=== PATIENT | female | born 1975 | race American Indian/Alaskan Native ===

== ENCOUNTER 2018-02-15 06:02 | Day surgery (SDC) | payer MEDICAID ==
[2018-02-15] MEDS ORDERED: WATER FOR IRRIG STERILE IR ONE ×2 (07:09→09:38)
[2018-02-15] MEDS ORDERED: NACL 0.9% 1000 ML 1,000 ML IV SCH (08:00)
[2018-02-15] MEDS ORDERED: DIPRIVAN 10 MG/ML IV ONE (08:23)
[2018-02-15] MEDS ORDERED: VERSED ONE (08:23)
--- NOTE | 2018-02-15 08:26 | Anesthesia Day of Surgery ---
Anesthesia Day of Surgery - Day of Surgery Patient Examined: Yes Patient H&P Reviewed: Yes Patient is NPO: Yes
--- NOTE | 2018-02-15 08:26 | Anesthesia Consultation ---
Anesthesia Consult and Med Hx Date of service: 02/15/18 - Airway Anesthetic Teeth Evaluation: Good ROM Head & Neck: Adequate Mental/Hyoid Distance: Adequate Mallampati Class: Class I Intubation Access Assessment: Probably Good - Pulmonary Exam CTA: Yes - Cardiac Exam Cardiac Exam: RRR - Pre-Operative Health Status ASA Pre-Surgery Classification: ASA3 - Pulmonary Hx Sleep Apnea: Yes - Cardiovascular System Hx Hypertension: Yes - Endocrine Hx Insulin Dependent Diabetes: Yes - Additional Comments Anesthesia Medical History Comments: h/o rheumatic heart disease
[2018-02-15] MEDS ORDERED: HURRICAINE ONE 20% TOPICAL SPRAY MM ×2 (08:50→09:38)
[2018-02-15 09:21] VITALS: BP 126/67
[2018-02-15] MEDS ORDERED: XYLOCAINE MPF 2% ONE (09:30)
--- NOTE | 2018-02-15 14:21 | Post Anesthesia Evaluation ---
- Post Anesthesia Evaluation Patient Participated: Yes Airway Patent: Yes Stable Respiratory Function: Yes Nausea/Vomiting: No Temp > 96.8F: Yes Pain Manageable: Yes Adequeate Hydration: Yes Anesthesia Complications: No
[2018-02-15] MEDS ORDERED: HURRICAINE ONE 20% TOPICAL SPRAY MM NR (19:00)
== END 2018-02-15 06:03 | disposition home or self-care (01) ==
LOC: GIO 06:02
PROVIDERS: ATTEND Specialist
DX: K21.0 Gastro-esophageal reflux disease with esophagitis (principal); B96.89 Other specified bacterial agents as the cause of diseases classified elsewhere; K44.9 Diaphragmatic hernia without obstruction or gangrene; I10 Essential (primary) hypertension; E11.9 Type 2 diabetes mellitus without complications; G47.30 Sleep apnea, unspecified; J45.909 Unspecified asthma, uncomplicated; Z88.0 Allergy status to penicillin; Z99.89 Dependence on other enabling machines and devices; Z98.890 Other specified postprocedural states
CPT/HCPCS: 43239; 81025; 82962; 88305; J2250; J2704; J7030

== ENCOUNTER 2020-09-05 14:56 | Inpatient (IN) | payer MEDICAID ==
--- NOTE | 2020-09-05 17:03 | Emergency Department Report ---
ED General Adult HPI - General Chief complaint: Altered Mental Status Stated complaint: T.I.A Time Seen by Provider: 09/05/20 16:25 Source: EMS Mode of arrival: Stretcher Limitations: Altered Mental Status - History of Present Illness Initial comments: Patient presents to the emergency department today with a chief complaint of facial numbness and slurred speech. 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 She does states she began to have some left facial tingling and then slurred speech. This occurred around 2 PM. This lasted for about 10 minutes and resolved. Patient states she had a TIA/CVA in 2018 and this is very similar to those episodes. Patient does endorse a history of asthma diabetes and hypertension. Patient also states she has hyperlipidemia. Severity scale (0 -10): 0 - Related Data Home Medications Medication Instructions Recorded Confirmed Last Taken HumuLIN 70-30 Vial 27 units SUB-Q QHS 02/14/18 02/22/18 02/20/18 23:00 27 UNITS HumuLIN 70-30 Vial 45 units SUB-Q QAM 02/14/18 02/22/18 02/20/18 09:00 45 UNITS Losartan 100 mg PO DAILY 02/14/18 02/21/18 02/20/18 Albuterol Mdi (or & Nicu Only) 2 puff IH QID PRN 02/21/18 02/22/18 01/17/18 [Proair] Previous Rx's Medication Instructions Recorded Last Taken Type Simvastatin 40 mg PO QHS #30 tablet 09/05/20 Unknown Rx Allergies Allergy/AdvReac Type Severity Reaction Status Date / Time Penicillins AdvReac Intermediate Hives Verified 02/17/18 15:16 ED Review of Systems ROS: Stated complaint: T.I.A Other details as noted in HPI Comment: All other systems reviewed and negative Constitutional: denies: chills, fever Eyes: denies: eye pain, eye discharge, vision change ENT: denies: ear pain, throat pain Respiratory: denies: cough, shortness of breath, wheezing Cardiovascular: denies: chest pain, palpitations Endocrine: no symptoms reported Gastrointestinal: denies: abdominal pain, nausea, diarrhea Genitourinary: denies: urgency, dysuria, discharge Musculoskeletal: denies: back pain, joint swelling, arthralgia Skin: denies: rash, lesions Neurological: denies: headache, weakness, paresthesias Psychiatric: denies: anxiety, depression Hematological/Lymphatic: denies: easy bleeding, easy bruising ED Past Medical Hx - Past Medical History Previous Medical History?: Yes Hx Hypertension: Yes (X 3 YRS) Hx Diabetes: Yes Hx GERD: Yes Hx Asthma: Yes (INHALER PRN) Hx HIV: No Additional medical history: HIGH CHOLESTEROL - Surgical History Past Surgical History?: Yes Additional Surgical History: d&c x 2 - Social History Smoking Status: Former Smoker - Medications Home Medications: Home Medications Medication Instructions Recorded Confirmed Last Taken Type HumuLIN 70-30 Vial 27 units SUB-Q QHS 02/14/18 02/22/18 02/20/18 23:00 History 27 UNITS HumuLIN 70-30 Vial 45 units SUB-Q QAM 02/14/18 02/22/18 02/20/18 09:00 History 45 UNITS Losartan 100 mg PO DAILY 02/14/18 02/21/18 02/20/18 History Albuterol Mdi (or & Nicu Only) 2 puff IH QID PRN 02/21/18 02/22/18 01/17/18 History [Proair] Simvastatin 40 mg PO QHS #30 tablet 09/05/20 Unknown Rx ED Physical Exam - General Limitations: Altered Mental Status General appearance: alert, in no apparent distress - Head Head exam: Present: atraumatic, normocephalic - Eye Eye exam: Present: normal appearance - ENT ENT exam: Present: mucous membranes moist - Neck Neck exam: Present: normal inspection - Respiratory Respiratory exam: Present: normal lung sounds bilaterally. Absent: respiratory distress - Cardiovascular Cardiovascular Exam: Present: regular rate, normal rhythm. Absent: systolic murmur, diastolic murmur, rubs, gallop - GI/Abdominal GI/Abdominal exam: Present: soft, normal bowel sounds. Absent: distended, tenderness - Extremities Exam Extremities exam: Present: normal inspection - Back Exam Back exam: Present: normal inspection - Neurological Exam Neurological exam: Present: alert, oriented X3, CN II-XII intact. Absent: motor sensory deficit - Psychiatric Psychiatric exam: Present: normal affect, normal mood - Skin Skin exam: Present: warm, dry, intact, normal color. Absent: rash ED Course Vital Signs 09/05/20 09/05/20 09/05/20 15:36 15:45 16:00 Temperature 98.9 F Pulse Rate 70 71 66 Respiratory 15 17 13 Rate Blood Pressure 154/87 155/86 Blood Pressure 134/70 [Right] O2 Sat by Pulse 99 99 99 Oximetry 09/05/20 09/05/20 09/05/20 16:15 16:30 17:01 Temperature Pulse Rate 66 65 66 Respiratory 19 19 18 Rate Blood Pressure 141/68 142/82 155/74 Blood Pressure [Right] O2 Sat by Pulse 99 98 98 Oximetry 09/05/20 09/05/20 17:15 17:47 Temperature Pulse Rate 67 74 Respiratory 15 Rate Blood Pressure 155/74 165/61 Blood Pressure [Right] O2 Sat by Pulse 100 100 Oximetry ED Medical Decision Making - Lab Data Result diagrams: 09/05/20 17:01 09/05/20 17:01 Lab Results 09/05/20 09/05/20 09/05/20 Range/Units 17:01 17:01 17:01 WBC 6.5 (4.5-11.0) K/mm3 RBC 3.70 (3.65-5.03) M/mm3 Hgb 9.5 L (10.1-14.3) gm/dl Hct 30.1 L (30.3-42.9) % MCV 81 (79-97) fl MCH 26 L (28-32) pg MCHC 32 (30-34) % RDW 15.5 H (13.2-15.2) % Plt Count 292 (140-440) K/mm3 Lymph % (Auto) 43.4 H (13.4-35.0) % [place] % (Auto) 6.4 (0.0-7.3) % Eos % (Auto) 5.2 H (0.0-4.3) % Baso % (Auto) 1.9 H (0.0-1.8) % Lymph # (Auto) 2.8 (1.2-5.4) K/mm3 [place] # (Auto) 0.4 (0.0-0.8) K/mm3 Eos # (Auto) 0.3 (0.0-0.4) K/mm3 Baso # (Auto) 0.1 (0.0-0.1) K/mm3 Seg Neutrophils % 43.1 (40.0-70.0) % Seg Neutrophils # 2.8 (1.8-7.7) K/mm3 PT 13.6 (12.2-14.9) Sec. INR 1.02 (0.87-1.13) APTT 27.8 (24.2-36.6) Sec. Thrombin Time 16.0 (15.1-19.6) Sec. Sodium 140 (137-145) mmol/L Potassium 3.8 (3.6-5.0) mmol/L Chloride 111.1 H (98-107) mmol/L Carbon Dioxide 21 L (22-30) mmol/L Anion Gap 12 mmol/L BUN 17 (7-17) mg/dL Creatinine 0.6 (0.6-1.2) mg/dL Estimated GFR > 60 ml/min BUN/Creatinine Ratio 28 % Glucose 86 (65-100) mg/dL POC Glucose (70-105) mg/dL Calcium 8.5 (8.4-10.2) mg/dL Total Bilirubin 0.20 (0.1-1.2) mg/dL AST 12 (5-40) units/L ALT 13 (7-56) units/L Alkaline Phosphatase 98 (35-129) units/L Total Creatine Kinase 131 (30-135) units/L CK-MB (CK-2) 1.0 (0.0-4.0) ng/mL CK-MB (CK-2) Rel Index 0.7 (0-4) Troponin T < 0.010 (0.00-0.029) ng/mL Total Protein 6.9 (6.3-8.2) g/dL Albumin 3.5 L (3.9-5) g/dL Albumin/Globulin Ratio 1.0 % Plasma/Serum Alcohol (0-0.07) % 09/05/20 09/05/20 Range/Units 17:01 18:14 WBC (4.5-11.0) K/mm3 RBC (3.65-5.03) M/mm3 Hgb (10.1-14.3) gm/dl Hct (30.3-42.9) % MCV (79-97) fl MCH (28-32) pg MCHC (30-34) % RDW (13.2-15.2) % Plt Count (140-440) K/mm3 Lymph % (Auto) (13.4-35.0) % [place] % (Auto) (0.0-7.3) % Eos % (Auto) (0.0-4.3) % Baso % (Auto) (0.0-1.8) % Lymph # (Auto) (1.2-5.4) K/mm3 [place] # (Auto) (0.0-0.8) K/mm3 Eos # (Auto) (0.0-0.4) K/mm3 Baso # (Auto) (0.0-0.1) K/mm3 Seg Neutrophils % (40.0-70.0) % Seg Neutrophils # (1.8-7.7) K/mm3 PT (12.2-14.9) Sec. INR (0.87-1.13) APTT (24.2-36.6) Sec. Thrombin Time (15.1-19.6) Sec. Sodium (137-145) mmol/L Potassium (3.6-5.0) mmol/L Chloride (98-107) mmol/L Carbon Dioxide (22-30) mmol/L Anion Gap mmol/L BUN (7-17) mg/dL Creatinine (0.6-1.2) mg/dL Estimated GFR ml/min BUN/Creatinine Ratio % Glucose (65-100) mg/dL POC Glucose 92 (70-105) mg/dL Calcium (8.4-10.2) mg/dL Total Bilirubin (0.1-1.2) mg/dL AST (5-40) units/L ALT (7-56) units/L Alkaline Phosphatase (35-129) units/L Total Creatine Kinase (30-135) units/L CK-MB (CK-2) (0.0-4.0) ng/mL CK-MB (CK-2) Rel Index (0-4) Troponin T (0.00-0.029) ng/mL Total Protein (6.3-8.2) g/dL Albumin (3.9-5) g/dL Albumin/Globulin Ratio % Plasma/Serum Alcohol < 0.01 (0-0.07) % - EKG Data -: EKG Interpreted by Ks EKG shows normal: sinus rhythm Rate: normal - Radiology Data Radiology results: report reviewed - Medical Decision Making Code stroke initiated Patient seen by teleneurology With the patient's history of CVA the suggestion was made for admission for TIA work-up Critical care attestation.: If time is entered above; I have spent that time in minutes in the direct care of this critically ill patient, excluding procedure time. ED Disposition Clinical Impression: TIA (transient ischemic attack) Disposition: DC-09 OP ADMIT IP TO THIS HOSP Is pt being admited?: Yes Does the pt Need Aspirin: Yes Condition: Fair Prescriptions: Simvastatin 40 mg PO QHS #30 tablet Referrals: PRIMARY CARE, [Primary Care Provider] - 3-5 Days - Assessment Assessment Interval: Baseline - Level of Consciousness 1a. Level of Consciousness: alert/keenly responsive - LOC Questions 1b. LOC Questions: answers both correctly - LOC Command 1c. LOC Commands: performs tasks correctly - Best Gaze 2. Best Gaze: normal - Visual 3. Visual: no visual loss - Facial Palsy 4. Facial Palsy: normal symmetrical movement - Motor Arm 5a. Motor Arm Left: no drift 5b. Motor Arm Right: no drift - Motor Leg 6a. Motor Leg Left: no drift 6b. Motor Leg Right: no drift - Limb Ataxia 7. Limb Ataxia: absent - Sensory 8. Sensory: normal - Best Language 9. Best Language: no aphasia - Dysarthria 10. Dysarthria: normal - Extinction and Inattention 11. Extinction/Inattention: no abnormality - Scoring Total Score: 0 Stroke Severity: No Stroke Symptoms
[2020-09-05 17:23] LABS: Basophils # (Auto) 0.1 K/mm3 (0.0-0.1); Basophils % (Auto) 1.9 % (0.0-1.8); Eosinophils # (Auto) 0.3 K/mm3 (0.0-0.4); Eosinophils % (Auto) 5.2 % (0.0-4.3); Hematocrit 30.1 % (30.3-42.9); Hemoglobin 9.5 gm/dl (10.1-14.3); Lymphocytes # (Auto) 2.8 K/mm3 (1.2-5.4); Lymphocytes % (Auto) 43.4 % (13.4-35.0); Mean Corpuscular HGB Conc 32 % (30-34); Mean Corpuscular Volume 81 fl (79-97); Monocytes # (Auto) 0.4 K/mm3 (0.0-0.8); Monocytes % (Auto) 6.4 % (0.0-7.3); Platelet Count 292 K/mm3 (140-440); Red Cell Distribution Width 15.5 % (13.2-15.2)
[2020-09-05 17:33] LABS: INR 1.02 (0.87-1.13)
[2020-09-05 17:34] LABS: Partial Thromboplastin Time 27.8 Sec. (24.2-36.6)
[2020-09-05 17:40] LABS: Alanine Aminotransferase 13 units/L (7-56); Albumin 3.5 g/dL (3.9-5); Blood Urea Nitrogen 17 mg/dL (7-17); Calcium 8.5 mg/dL (8.4-10.2); Hemolysis Index 1
--- NOTE | 2020-09-05 17:45 | Emergency Department Report ---
ED General Adult HPI - General Chief complaint: Altered Mental Status Stated complaint: T.I.A Time Seen by Provider: 09/05/20 16:25 Source: patient, EMS Mode of arrival: Stretcher Limitations: Altered Mental Status - History of Present Illness Severity scale (0 -10): 0 - Related Data Home Medications Medication Instructions Recorded Confirmed Last Taken HumuLIN 70-30 Vial 27 units SUB-Q QHS 02/14/18 02/22/18 02/20/18 23:00 27 UNITS HumuLIN 70-30 Vial 45 units SUB-Q QAM 02/14/18 02/22/18 02/20/18 09:00 45 UNITS Losartan 100 mg PO DAILY 02/14/18 02/21/18 02/20/18 Albuterol Mdi (or & Nicu Only) 2 puff IH QID PRN 02/21/18 02/22/18 01/17/18 [Proair] Pravastatin [Pravachol] 20 mg PO QHS 02/21/18 02/21/18 02/20/18 Allergies Allergy/AdvReac Type Severity Reaction Status Date / Time Penicillins AdvReac Intermediate Hives Verified 02/17/18 15:16 ED Review of Systems ROS: Stated complaint: T.I.A Other details as noted in HPI Constitutional: denies: chills, fever Eyes: denies: eye pain, eye discharge, vision change ENT: denies: ear pain, throat pain Respiratory: denies: cough, shortness of breath, wheezing Cardiovascular: denies: chest pain, palpitations Endocrine: no symptoms reported Gastrointestinal: denies: abdominal pain, nausea, diarrhea Genitourinary: denies: urgency, dysuria, discharge Musculoskeletal: denies: back pain, joint swelling, arthralgia Skin: denies: rash, lesions Neurological: denies: headache, weakness, paresthesias Psychiatric: denies: anxiety, depression Hematological/Lymphatic: denies: easy bleeding, easy bruising ED Past Medical Hx - Past Medical History Previous Medical History?: Yes Hx Hypertension: Yes (X 3 YRS) Hx Diabetes: Yes Hx GERD: Yes Hx Asthma: Yes (INHALER PRN) Hx HIV: No Additional medical history: HIGH CHOLESTEROL - Surgical History Past Surgical History?: Yes Additional Surgical History: d&c x 2 - Social History Smoking Status: Former Smoker - Medications Home Medications: Home Medications Medication Instructions Recorded Confirmed Last Taken Type HumuLIN 70-30 Vial 27 units SUB-Q QHS 02/14/18 02/22/18 02/20/18 23:00 History 27 UNITS HumuLIN 70-30 Vial 45 units SUB-Q QAM 02/14/18 02/22/18 02/20/18 09:00 History 45 UNITS Losartan 100 mg PO DAILY 02/14/18 02/21/18 02/20/18 History Albuterol Mdi (or & Nicu Only) 2 puff IH QID PRN 02/21/18 02/22/18 01/17/18 History [Proair] Pravastatin [Pravachol] 20 mg PO QHS 02/21/18 02/21/18 02/20/18 History ED Physical Exam - General Limitations: Altered Mental Status General appearance: alert, in no apparent distress - Head Head exam: Present: atraumatic ED Course Vital Signs 09/05/20 15:36 Temperature 98.9 F Pulse Rate 70 Respiratory 15 Rate Blood Pressure 134/70 [Right] O2 Sat by Pulse 99 Oximetry - Reevaluation(s) Reevaluation #1: 09/05/20 17:45 [facility] Date of Service: 09/05/2020 16:55:36 Impression: Rule Out Acute Ischemic Stroke Small Vessel Infarct Transient Ischemic Attack Comments/Sign-Out: Patient with history of hypertension, HLD, prior TIA who presents with left sided numbness and paresthesias. This began before 2pm. NIHSS 1. Symptoms are mild and nondisabling. The risks of alteplase outweigh the benefit. Would admit for MRI brain, 2d echo, CUS, control of cardiovascular risk factors. Mechanism of Stroke: Small Vessel Disease Metrics: Last Known Well: 09/05/2020 14:00:00 [facility] Notification Time: 09/05/2020 16:55:25 Arrival Time: 09/05/2020 14:56:00 Stamp Time: 09/05/2020 16:55:36 Time First Login Attempt: 09/05/2020 16:55:00 Video Start Time: 09/05/2020 16:55:00 Symptoms: left facial numbness and slurred speech NIHSS Start Assessment Time: 09/05/2020 17:35:43 Patient is not a candidate for Alteplase/Activase. Patient was not deemed candidate for Alteplase/Activase thrombolytics because of Resolved symptoms (no residual disabling symptoms). CT head showed no acute hemorrhage or acute core infarct. CT head was reviewed. Clinical Presentation is not Suggestive of Large Vessel Occlusive Disease ED Physician notified of diagnostic impression and management plan on 09/05/2020 17:23:19 Our recommendations are outlined below. Recommendations: Activate Stroke Protocol Admission/Order Set Stroke/Telemetry Floor Neuro Checks Bedside Swallow Eval DVT Prophylaxis IV Fluids, Normal Saline Head of Bed 30 Degrees Euglycemia and Avoid Hyperthermia (PRN Acetaminophen) Initiate Aspirin Initiate Plavix on asa and plavix lipitor 80mg check lipid panel and HgA1C Routine Consultation with Inhouse Neurology for Follow up Care Sign Out: Discussed with Emergency Department Provider History of Present Illness: Patient is a 45 year old Female. Patient was brought by EMS for symptoms of left facial numbness and slurred speech Patient is a 45 yr old with PMH of prior TIA, hypertension, hyperlipidemia, diabetes who presents after a 10-15min episode of left facial numbness and slurred speech. It is now resolved. She is back to her baseline. 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 Last seen normal was within 4.5 hours. There is no history of hemorrhagic complications or intracranial hemorrhage. There is no history of Recent Anticoagulants. There is no history of recent major surgery. There is no history of recent stroke. Past Medical History: Hypertension Diabetes Mellitus Hyperlipidemia Stroke There is NO history of Atrial Fibrillation There is NO history of Coronary Artery Disease Anticoagulant use: No Antiplatelet use: aspirin and plavix Examination: BP(134/70), Pulse(70), Blood Glucose(-) 1A: Level of Consciousness - Alert; keenly responsive + 0 1B: Ask Month and Age - Both Questions Right + 0 1C: Blink Eyes & Squeeze Hands - Performs Both Tasks + 0 2: Test Horizontal Extraocular Movements - Normal + 0 3: Test Visual Martinez - No Visual Loss + 0 4: Test Facial Palsy (Use Grimace if Obtunded) - Normal symmetry + 0 5A: Test Left Arm Motor Drift - No Drift for 10 Seconds + 0 5B: Test Right Arm Motor Drift - No Drift for 10 Seconds + 0 6A: Test Left Leg Motor Drift - No Drift for 5 Seconds + 0 6B: Test Right Leg Motor Drift - No Drift for 5 Seconds + 0 7: Test Limb Ataxia (FNF/Heel-Rodriguez) - No Ataxia + 0 8: Test Sensation - Mild-Moderate Loss: Less Sharp/More Dull + 1 9: Test Language/Aphasia - Normal; No aphasia + 0 10: Test Dysarthria - Normal + 0 11: Test Extinction/Inattention - No abnormality + 0 NIHSS Score: 1 Pre-Morbid Modified Ranking Scale: 0 Points = No symptoms at all Patient/Family was informed the Neurology Consult would happen via TeleHealth consult by way of interactive audio and video telecommunications and consented to receiving care in this manner. Due to the immediate potential for life-threatening deterioration due to underlying acute neurologic illness, I spent 45 minutes providing critical care. This time includes time for face to face visit via telemedicine, review of medical records, imaging studies and discussion of findings with providers, the patient and/or family. Dr Michelle Yanes [facility] Case [id number] ED Medical Decision Making - Lab Data Result diagrams: 09/05/20 17:01 09/05/20 17:01 Critical care attestation.: If time is entered above; I have spent that time in minutes in the direct care of this critically ill patient, excluding procedure time. ED Disposition Condition: Stable Referrals: PRIMARY CARE, [Primary Care Provider] - 3-5 Days
--- NOTE | 2020-09-05 17:57 | Cat Scan Report ---
CT HEAD WITHOUT CONTRAST INDICATION / CLINICAL INFORMATION: Stroke symptoms. History obtained from Dr. Christine included facial weakness and aphasia. Symptoms are sa id to have recently resolved. TECHNIQUE: All CT scans at this location are performed using CT dose reduction for ALARA by means of automated e xposure control. COMPARISON: None available. FINDINGS: HEMORRHAGE: No evidence of intracranial hemorrhage or extra-axial fluid collection. EXTRA-AXIAL SPACES: Cortical sulci, sylvian fissures and basilar cisterns have an unremarkable appear ance. VENTRICULAR SYSTEM: The ventricular system is of normal size. Note is made of absence of the septum p ellucidum which can be associated with septo-optic dysplasia. CEREBRAL PARENCHYMA: An area of decreased brain parenchymal attenuation is identified in the right oc cipital lobe secondary to remote right posterior cerebral artery infarction. A small area of decrease d attenuation is observed in the left gangliocapsular region likely reflecting the sequelae of remote small deep infarction. No definite evidence of recent infarction is observed. Note is made of bilate rally symmetrical physiological basal ganglia calcifications. MIDLINE SHIFT OR HERNIATION: There is no mass effect. CEREBELLUM / BRAINSTEM: Brainstem and cerebellum have an unremarkable appearance. MIDLINE STRUCTURES:No abnormalities of the pituitary gland or pineal region are identified. INTRACRANIAL VESSELS: Calcified atherosclerotic plaque is observed along the course of the cavernous segments of both internal carotid arteries. ORBITS: Patient appears to be status post bilateral cataract surgery. The orbits have an otherwise un remarkable appearance. SOFT TISSUES of HEAD: No significant abnormality. CALVARIUM: Evaluation of bone windows reveals no abnormalities. PARANASAL SINUSES / MASTOID AIR CELLS: Paranasal sinuses are free from inflammatory mucosal disease. Mastoid air cells are normally pneumatized. IMPRESSION: 1. No acute intracranial abnormality. 2. Evidence of remote right occipital lobe infarction and remote small deep infarction in a left gang liocapsular distribution. 3. Congenital absence of the septum pellucidum. CODE STROKE: Time of Communication (CLINICAL ACADEMIC ALLERGIST/CDT): 3016 Central standard time Licensed Practitioner Receiving Report: Dr. Christine of the [facility] emergency de partment. Signer Name: Jimbo Becerra MD Signed: 09/05/2020 5:53 PM Workstation Name: [id number]
--- NOTE | 2020-09-05 18:00 | XRay Report ---
CHEST 1 VIEW 09/05/2020 4:55 PM INDICATION / CLINICAL INFORMATION: TIA. COMPARISON: None available. FINDINGS: SUPPORT DEVICES: None. HEART / MEDIASTINUM: No significant abnormality. LUNGS / PLEURA: No significant pulmonary or pleural abnormality. No pneumothorax. ADDITIONAL FINDINGS: No significant additional findings. IMPRESSION: 1. No acute findings. Signer Name: Monroe Ho MD Signed: 09/05/2020 5:56 PM Workstation Name: [id number]
[2020-09-05 18:01] LABS: BUN/Creatinine Ratio 28
[2020-09-05] MEDS ORDERED: PROMETHAZINE 25 MG RECT SUPP PR PRN (19:44)
[2020-09-05] MEDS ORDERED: METOCLOPRAMIDE 10 MG TAB PO PRN (19:44)
[2020-09-05] MEDS ORDERED: ACETAMINOPHEN 325 MG TAB PO PRN (19:44)
[2020-09-05] MEDS ORDERED: ONDANSETRON 4 MG/2 ML INJ IV PRN (19:44)
[2020-09-05] MEDS ORDERED: MAGNESIUM HYDROXIDE (MOM) ORAL LIQD UDC PO PRN (19:44)
--- NOTE | 2020-09-05 19:44 | History and Physical Report ---
History of Present Illness Chief complaint: I felt weak and I could not talk all of a sudden History of present illness: 45 YO Female with Obesity Hypoventilation Syndrome, HTN, DM, HLD, Metabolic Syndrome presents to ED for evaluation. Patient states that she experienced sudden onset facial numbness and slurred speech around 1400 hrs. 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 After the onset of symptoms the patient pulled over a local restaurant. EMS was notified and upon arrival the patient was found to be in distress with a neurologic deficit. A code stroke was called and the patient was transported to [facility] for further care and evaluation of the aforementioned symptoms. Patient seen and evaluated in the emergency department. Lab and imaging studies reviewed. Patient found to have symptoms consistent with CVA. Teleneurology was consulted. The patient was deemed to not be a candidate for TPA therapy. patient initiated on stroke protocol and placed in observation status and admitted to medical floor. Past History Past Medical History: diabetes, hypertension, hyperlipidemia Past Surgical History: Other (D&C) Social history: . denies: smoking, alcohol abuse, prescription drug abuse Family history: diabetes, hypertension Medications and Allergies Allergies Allergy/AdvReac Type Severity Reaction Status Date / Time Penicillins AdvReac Intermediate Hives Verified 02/17/18 15:16 Home Medications Medication Instructions Recorded Confirmed Last Taken Type HumuLIN 70-30 Vial 27 units SUB-Q QHS 02/14/18 02/22/18 02/20/18 23:00 History 27 UNITS HumuLIN 70-30 Vial 45 units SUB-Q QAM 02/14/18 02/22/18 02/20/18 09:00 History 45 UNITS Losartan 100 mg PO DAILY 02/14/18 02/21/18 02/20/18 History Albuterol Mdi (or & Nicu Only) 2 puff IH QID PRN 02/21/18 02/22/18 01/17/18 History [Proair] Simvastatin 40 mg PO QHS #30 tablet 09/05/20 Unknown Rx Review of Systems Constitutional: no weight loss, no weight gain, no fever, no chills Ears, nose, mouth and throat: no ear pain, no ear discharge, no decreased hearing, no nose pain Breasts: no change in shape, no swelling, no mass Cardiovascular: no chest pain, no orthopnea, no palpitations, no rapid/irregular heart beat Respiratory: no cough, no excessive sputum, no hemoptysis, no shortness of breath Gastrointestinal: no abdominal pain, no vomiting, no diarrhea, no constipation Genitourinary Female: no pelvic pain, no flank pain, no menorrhagia, no dysuria, no urinary frequency, no urgency, no post void dribbling Rectal: no pain, no incontinence, no bleeding Musculoskeletal: no neck stiffness, no neck pain, no low back pain Integumentary: no rash, no pruritis, no sores, no wounds, no jaundice, no boils Neurological: paralysis, weakness, numbness, change in speech, no seizures, no syncope Psychiatric: no memory loss, no change in sleep habits, no sleep disturbances, no insomnia, no hypersomnia, no change in appetite Endocrine: no cold intolerance, no polyphagia, no excessive thirst, no polydips ia, no nocturia, no flushing Hematologic/Lymphatic: no easy bruising, no easy bleeding, no lymphadenopathy, no lymphedema Allergic/Immunologic: no urticaria, no allergic rhinitis, no persistent infections, no anaphylaxis, no angioedema Exam - Constitutional Vitals: Temp Pulse Resp BP Pulse Ox 98.9 F 74 15 165/61 100 09/05/20 15:36 09/05/20 17:47 09/05/20 17:15 09/05/20 17:47 09/05/20 17:47 General appearance: Present: no acute distress, well-nourished - EENT Eyes: Present: PERRL ENT: hearing intact, clear oral mucosa - Neck Neck: Present: supple, normal ROM - Respiratory Respiratory effort: normal Respiratory: bilateral: CTA - Cardiovascular Heart Sounds: Present: S1 & S2. Absent: rub, click - Extremities Extremities: pulses symmetrical, No edema Peripheral Pulses: within normal limits - Abdominal General gastrointestinal: Present: soft, non-tender, non-distended, normal bowel sounds Female genitourinary: Present: normal - Integumentary Integumentary: Present: clear, warm, dry - Musculoskeletal Musculoskeletal: gait normal, strength equal bilaterally - Psychiatric Psychiatric: appropriate mood/affect, intact judgment & insight - Neurologic Neurologic: CNII-XII intact, moves all extremities HEART Score - HEART Score Troponin: Troponin T < 0.010 ng/mL (0.00-0.029) 09/05/20 17:01 Results - Labs CBC & Chem 7: 09/05/20 17:01 09/05/20 17:01 Labs: Abnormal lab results 09/05/20 09/05/20 Range/Units 17:01 17:01 Hgb 9.5 L (10.1-14.3) gm/dl Hct 30.1 L (30.3-42.9) % MCH 26 L (28-32) pg RDW 15.5 H (13.2-15.2) % Lymph % (Auto) 43.4 H (13.4-35.0) % Eos % (Auto) 5.2 H (0.0-4.3) % Baso % (Auto) 1.9 H (0.0-1.8) % Chloride 111.1 H (98-107) mmol/L Carbon Dioxide 21 L (22-30) mmol/L Albumin 3.5 L (3.9-5) g/dL Assessment and Plan - Patient Problems (1) CVA (cerebral vascular accident) Current Visit: Yes Status: Acute Qualifiers: Laterality of affected vessel: unspecified Plan to address problem: CVA Protocol: CT head, Neuro check, PT consulted, OT consulted, Speech consulted, anti platelet therapy, Echo, Carotid doppler, antiplatelet therapy (2) HTN (hypertension) Current Visit: Yes Status: Acute Qualifiers: Hypertension type: essential hypertension Qualified Code(s): I10 - Essent ial (primary) hypertension Plan to address problem: Monitor bp q shift, continue medical management. (3) HLD (hyperlipidemia) Current Visit: Yes Status: Acute Qualifiers: Hyperlipidemia type: mixed hyperlipidemia Qualified Code(s): E78.2 - Mixed hyperlipidemia Plan to address problem: statin therapy, low cholesterol diet. (4) Diabetes Current Visit: Yes Status: Acute Plan to address problem: Sliding scale insulin, accu check, consistent carbohydrate diet (5) DVT prophylaxis Current Visit: Yes Status: Acute Plan to address problem: SCD to BLE while in bed.
[2020-09-05] MEDS ORDERED: DEXTROSE 50% IN WATER (25GM) 50 ML SYRINGE IV PRN (19:49)
[2020-09-05] MEDS ORDERED: ASPIRIN 81 MG TAB CHEW PO ONE (19:50)
[2020-09-05] MEDS ORDERED: ASPIRIN 81 MG TAB CHEW ONE (23:47)
[2020-09-06] MEDS: INSULIN LISPRO 100 UNIT/ML VIAL 3 mL SUB-Q SCH ×3 (01:07→23:25)
[2020-09-06 06:53] LABS: Chol/HDL Ratio 2.84 %
--- NOTE | 2020-09-06 11:11 | Vascular Lab Report ---
VL carotid duplex BILAT INDICATION / CLINICAL INFORMATION: stroke. COMPARISON: None available. FINDINGS: Moderate intimal thickening is demonstrated bilaterally, but there is only minimal plaque formation. Velocity measurements and waveform analysis indicate less than 50% stenosis of each internal carotid artery, according to Nascet criteria. Normal antegrade flow is demonstrated in both vertebral arteries. IMPRESSION: 1. No hemodynamically significant stenosis. Signer Name: Moisés Grullon MD Signed: 09/06/2020 11:07 AM Workstation Name: [email or web address]
[2020-09-06] MEDS ORDERED: FLU VACC QUAD 2020-2021 (6 months +)/PF 60 0.5 ML SYRINGE IM ONE (12:00)
[2020-09-06] MEDS: ASPIRIN 325 MG TAB PO SCH (12:21)
[2020-09-06] MEDS: LOSARTAN 50 MG TAB PO SCH (12:22)
--- NOTE | 2020-09-06 14:24 | Progress Note ---
<DOMOZARAPaula - Last Filed: 09/06/20 14:42> Assessment and Plan - Patient Problems (1) CVA (cerebral vascular accident) Current Visit: Yes Status: Acute Qualifiers: Laterality of affected vessel: unspecified Plan to address problem: 09/05 CT head shows evidence of remote right occipital lobe infarction and remote small deep infarctions in the left gangliocapsular distribution small deep infarction. 09/06 echocardiogram pending 09/06 bilateral carotid duplex shows less than 50% stenosis bilateral internal carotid artery. No hemodynamically significant stenosis noted. 09/06 MRI brain pending Neurology consulted Aspirin and statin therapy Permissive hypertension for 24 hours then target normotension PT/OT/ST consult Seizure, aspiration, fall precautions (2) Diabetes Current Visit: Yes Status: Acute Plan to address problem: 09/06 hemoglobin A1c 6 SSI CC cardiac diet Accu-Cheks AC at bedtime (3) HLD (hyperlipidemia) Current Visit: Yes Status: Acute Qualifiers: Hyperlipidemia type: mixed hyperlipidemia Qualified Code(s): E78.2 - Mixed hyperlipidemia Plan to address problem: Initiated on statin therapy (4) HTN (hypertension) Current Visit: Yes Status: Acute Qualifiers: Hypertension type: essential hypertension Qualified Code(s): I10 - Essential (primary) hypertension Plan to address problem: Resume home diet which is a regimen 09/06 added amlodipine Blood pressure monitoring per protocol As needed hydralazine (5) Hyperchloremia Current Visit: Yes Status: Acute Plan to address problem: 09/06 chloride 111.1 Trend BMP S/p IVF (6) DVT prophylaxis Current Visit: Yes Status: Acute Plan to address problem: Lovenox subcu SCDs bilateral extremities while in bed History Interval history: 45-year-old female with HTN, DM, SONG, HLD, CVA and metabolic syndrome who presents to the emergency department on 09/05 after she experienced sudden onset of facial numbness and slurred speech around 1400 hrs via EMS. Patient was found to have symptoms consistent with a CVA and telemetry neurology was consulted who deemed the patient not a candidate for TPA therapy. Patient was admitted to the hospital service for further CVA work-up. This morning patient received an MRI brain, echocardiogram, bilateral carotid ultrasound and PT/OT/ST was consulted. Patient was initiated on a cardiac consistent carbohydrate diet and neurology was consulted. At the time of my exam patient still exhibits a left-sided facial droop with a droop noted in her LUE and LLE and patient reports decreased sensation in her left lower extremity. Hospitalist Physical - Constitutional Vitals: Temp Pulse Resp BP Pulse Ox 98.6 F 82 18 165/76 98 09/06/20 12:22 09/06/20 12:22 09/06/20 12:22 09/06/20 12:22 09/06/20 12:22 General appearance: Present: no acute distress, well-nourished, obese - EENT Eyes: Present: PERRL, EOM intact ENT: hearing intact, clear oral mucosa, dentition normal - Neck Neck: Present: supple, normal ROM - Respiratory Respiratory effort: normal Respiratory: bilateral: CTA - Cardiovascular Rhythm: regular Heart Sounds: Present: S1 & S2. Absent: systolic murmur, diastolic murmur - Extremities Extremities: no ischemia, pulses intact, pulses symmetrical, No edema, normal temperature, normal color, Full ROM Peripheral Pulses: within normal limits - Abdominal General gastrointestinal: soft, non-tender, non-distended, normal bowel sounds - Integumentary Integumentary: Present: clear, warm, dry - Psychiatric Psychiatric: appropriate mood/affect, cooperative - Neurologic Neurologic: CNII-XII intact, focal deficits (Slight LUE and LLE droop with a left-sided facial droop noted, unknown to patient if it was from previous CVA), moves all extremities - Allied Health Allied health notes reviewed: nursing HEART Score - HEART Score Troponin: Troponin T < 0.010 ng/mL (0.00-0.029) 09/05/20 17:01 Results - Labs CBC & Chem 7: 09/05/20 17:01 09/05/20 17:01 Labs: Laboratory Last Values WBC 6.5 K/mm3 (4.5-11.0) 09/05/20 17: RBC 3.70 M/mm3 (3.65-5.03) 09/05/20 17:01 Hgb 9.5 gm/dl (10.1-14.3) L 09/05/20 17: Hct 30.1 % (30.3-42.9) L 09/05/20 17: MCV 81 fl (79-97) 09/05/20 17: MCH 26 pg (28-32) L 09/05/20 17:01 MCHC 32 % (30-34) 09/05/20 17:01 RDW 15.5 % (13.2-15.2) H 09/05/20 17:01 Plt Count 292 K/mm3 (140-440) 09/05/20 17:01 Lymph % (Auto) 43.4 % (13.4-35.0) H 09/05/20 17:01 [place] % (Auto) 6.4 % (0.0-7.3) 09/05/20 17:01 Eos % (Auto) 5.2 % (0.0-4.3) H 09/05/20 17:01 Baso % (Auto) 1.9 % (0.0-1.8) H 09/05/20 17:01 Lymph # (Auto) 2.8 K/mm3 (1.2-5.4) 09/05/20 17:01 [place] # (Auto) 0.4 K/mm3 (0.0-0.8) 09/05/20 17:01 Eos # (Auto) 0.3 K/mm3 (0.0-0.4) 09/05/20 17:01 Baso # (Auto) 0.1 K/mm3 (0.0-0.1) 09/05/20 17:01 Seg Neutrophils % 43.1 % (40.0-70.0) 09/05/20 17:01 Seg Neutrophils # 2.8 K/mm3 (1.8-7.7) 09/05/20 17:01 PT 13.6 Sec. (12.2-14.9) 09/05/20 17:01 INR 1.02 (0.87-1.13) 09/05/20 17:01 APTT 27.8 Sec. (24.2-36.6) 09/05/20 17:01 Thrombin Time 16.0 Sec. (15.1-19.6) 09/05/20 17:01 Sodium 140 mmol/L (137-145) 09/05/20 17:01 Potassium 3.8 mmol/L (3.6-5.0) 09/05/20 17:01 Chloride 111.1 mmol/L (98-107) H 09/05/20 17:01 Carbon Dioxide 21 mmol/L (22-30) L 09/05/20 17:01 Anion Gap 12 mmol/L 09/05/20 17:01 BUN 17 mg/dL (7-17) 09/05/20 17:01 Creatinine 0.6 mg/dL (0.6-1.2) 09/05/20 17:01 Estimated GFR > 60 ml/min 09/05/20 17:01 BUN/Creatinine Ratio 28 % 09/05/20 17:01 Glucose 86 mg/dL (65-100) 09/05/20 17:01 POC Glucose 101 mg/dL (70-105) 09/06/20 12:01 Calcium 8.5 mg/dL (8.4-10.2) 09/05/20 17:01 Total Bilirubin 0.20 mg/dL (0.1-1.2) 09/05/20 17:01 AST 12 units/L (5-40) 09/05/20 17:01 ALT 13 units/L (7-56) 09/05/20 17:01 Alkaline Phosphatase 98 units/L (35-129) 09/05/20 17:01 Total Creatine Kinase 131 units/L (30-135) 09/05/20 17:01 CK-MB (CK-2) 1.0 ng/mL (0.0-4.0) 09/05/20 17:01 CK-MB (CK-2) Rel Index 0.7 (0-4) 09/05/20 17:01 Troponin T < 0.010 ng/mL (0.00-0.029) 09/05/20 17:01 Total Protein 6.9 g/dL (6.3-8.2) 09/05/20 17:01 Albumin 3.5 g/dL (3.9-5) L 09/05/20 17:01 Albumin/Globulin Ratio 1.0 % 09/05/20 17:01 Triglycerides 49 mg/dL (2-149) 09/06/20 05:04 Cholesterol 128 mg/dL (50-199) 09/06/20 05:04 LDL Cholesterol Direct 78 mg/dL (50-130) 09/06/20 05:04 HDL Cholesterol 45 mg/dL (40-59) 09/06/20 05:04 Cholesterol/HDL Ratio 2.84 % 09/06/20 05:04 Plasma/Serum Alcohol < 0.01 % (0-0.07) 09/05/20 17:01 Raman/IV: Voiding Method Toilet IV Catheter Type [Right INT / Saline Lock Antecubital] Active Medications - Current Medications Current Medications: Generic Name Dose Route Start Last Admin Trade Name Freq PRN Reason Stop Dose Admin Acetaminophen 650 mg 09/05/20 19:44 09/06/20 01:47 Tylenol PO 650 mg Q4H PRN Administration Pain, Mild (1-3) Aspirin 325 mg 09/06/20 10:00 09/06/20 12:21 Aspirin PO 325 mg QDAY TJ Administration Atorvastatin Calcium 40 mg 09/05/20 22:00 09/05/20 23:50 Lipitor PO 40 mg QHS TJ Administration Bisacodyl 10 mg 09/05/20 19:44 Dulcolax [place] QDAY PRN Constipation Dextrose 0 ml 09/05/20 19:49 D50w (25gm) Syringe IV Q30MIN PRN Hypoglycemia Protocol Insulin Human Lispro 0 unit 09/06/20 16:30 Humalog SUB-Q ACHS TJ Protocol Losartan Potassium 100 mg 09/06/20 10:00 09/06/20 12:22 Cozaar PO 100 mg DAILY TJ Administration Magnesium Hydroxide 30 ml 09/05/20 19:44 Milk Of Magnesia PO Q4H PRN Constipation Metoclopramide HCl 10 mg 09/05/20 19:44 Reglan PO Q6H PRN Nausea And Vomiting Ondansetron HCl 4 mg 09/05/20 19:44 Zofran IV Q8H PRN Nausea And Vomiting Promethazine HCl 25 mg 09/05/20 19:44 Phenergan [place] Q6H PRN Nausea And Vomiting Sodium Chloride 10 ml 09/05/20 19:44 Sodium Chloride Flush Syringe 10 Ml IV PRN PRN LINE FLUSH <JORGE PALACIO - Last Filed: 09/06/20 18:24> Assessment and Plan Assessment and plan: I saw and evaluated the patient. I agree with the findings and the plan of care as documented in the Nurse Practitioner's~note, with the following corrections and additions. Patient reports that her primary neurologist advised her to stop taking her chol esterol medication. She reports some improvement she does have some cough but no worsening shortness of breath. She was ambulatory with no difficulty on my observation. Hospitalist Physical - Constitutional Vitals: Temp Pulse Resp BP Pulse Ox 98.6 F 82 18 165/76 98 09/06/20 12:22 09/06/20 12:22 09/06/20 12:22 09/06/20 12:22 09/06/20 12:22 HEART Score - HEART Score Troponin: Troponin T < 0.010 ng/mL (0.00-0.029) 09/05/20 17: Results - Labs CBC & Chem 7: 09/05/20 17:01 09/05/20 17: Labs: Laboratory Last Values WBC 6.5 K/mm3 (4.5-11.0) 09/05/20 17: RBC 3.70 M/mm3 (3.65-5.03) 09/05/20 17: Hgb 9.5 gm/dl (10.1-14.3) L 09/05/20 17: Hct 30.1 % (30.3-42.9) L 09/05/20 17: MCV 81 fl (79-97) 09/05/20 17: MCH 26 pg (28-32) L 09/05/20 17: MCHC 32 % (30-34) 09/05/20 17: RDW 15.5 % (13.2-15.2) H 09/05/20 17: Plt Count 292 K/mm3 (140-440) 09/05/20 17: Lymph % (Auto) 43.4 % (13.4-35.0) H 09/05/20 17: [place] % (Auto) 6.4 % (0.0-7.3) 09/05/20 17: Eos % (Auto) 5.2 % (0.0-4.3) H 09/05/20 17: Baso % (Auto) 1.9 % (0.0-1.8) H 09/05/20 17: Lymph # (Auto) 2.8 K/mm3 (1.2-5.4) 09/05/20 17: [place] # (Auto) 0.4 K/mm3 (0.0-0.8) 09/05/20 17: Eos # (Auto) 0.3 K/mm3 (0.0-0.4) 09/05/20 17:01 Baso # (Auto) 0.1 K/mm3 (0.0-0.1) 09/05/20 17:01 Seg Neutrophils % 43.1 % (40.0-70.0) 09/05/20 17:01 Seg Neutrophils # 2.8 K/mm3 (1.8-7.7) 09/05/20 17:01 PT 13.6 Sec. (12.2-14.9) 09/05/20 17:01 INR 1.02 (0.87-1.13) 09/05/20 17:01 APTT 27.8 Sec. (24.2-36.6) 09/05/20 17:01 Thrombin Time 16.0 Sec. (15.1-19.6) 09/05/20 17:01 Sodium 140 mmol/L (137-145) 09/05/20 17:01 Potassium 3.8 mmol/L (3.6-5.0) 09/05/20 17:01 Chloride 111.1 mmol/L (98-107) H 09/05/20 17:01 Carbon Dioxide 21 mmol/L (22-30) L 09/05/20 17:01 Anion Gap 12 mmol/L 09/05/20 17:01 BUN 17 mg/dL (7-17) 09/05/20 17:01 Creatinine 0.6 mg/dL (0.6-1.2) 09/05/20 17:01 Estimated GFR > 60 ml/min 09/05/20 17:01 BUN/Creatinine Ratio 28 % 09/05/20 17:01 Glucose 86 mg/dL (65-100) 09/05/20 17:01 POC Glucose 99 mg/dL (70-105) 09/06/20 16:12 Hemoglobin A1c 6.0 % (4-6) 09/06/20 13:15 Calcium 8.5 mg/dL (8.4-10.2) 09/05/20 17:01 Total Bilirubin 0.20 mg/dL (0.1-1.2) 09/05/20 17:01 AST 12 units/L (5-40) 09/05/20 17:01 ALT 13 units/L (7-56) 09/05/20 17:01 Alkaline Phosphatase 98 units/L (35-129) 09/05/20 17:01 Total Creatine Kinase 131 units/L (30-135) 09/05/20 17:01 CK-MB (CK-2) 1.0 ng/mL (0.0-4.0) 09/05/20 17:01 CK-MB (CK-2) Rel Index 0.7 (0-4) 09/05/20 17:01 Troponin T < 0.010 ng/mL (0.00-0.029) 09/05/20 17:01 Total Protein 6.9 g/dL (6.3-8.2) 09/05/20 17:01 Albumin 3.5 g/dL (3.9-5) L 09/05/20 17:01 Albumin/Globulin Ratio 1.0 % 09/05/20 17:01 Triglycerides 49 mg/dL (2-149) 09/06/20 05:04 Cholesterol 128 mg/dL (50-199) 09/06/20 05:04 LDL Cholesterol Direct 78 mg/dL (50-130) 09/06/20 05:04 HDL Cholesterol 45 mg/dL (40-59) 09/06/20 05:04 Cholesterol/HDL Ratio 2.84 % 09/06/20 05:04 Plasma/Serum Alcohol < 0.01 % (0-0.07) 09/05/20 17:01 Raman/IV: Voiding Method Toilet IV Catheter Type [Right INT / Saline Lock Antecubital] Active Medications - Current Medications Current Medications: Generic Name Dose Route Start Last Admin Trade Name Freq PRN Reason Stop Dose Admin Acetaminophen 650 mg 09/05/20 19:44 09/06/20 01:47 Tylenol PO 650 mg Q4H PRN Administration Pain, Mild (1-3) Amlodipine Besylate 5 mg 09/06/20 15:00 Amlodipine PO QDAY TJ Aspirin 325 mg 09/06/20 10:00 09/06/20 12:21 Aspirin PO 325 mg QDAY TJ Administration Atorvastatin Calcium 40 mg 09/05/20 22:00 09/05/20 23:50 Lipitor PO 40 mg QHS TJ Administration Bisacodyl 10 mg 09/05/20 19:44 Dulcolax [place] QDAY PRN Constipation Dextrose 0 ml 09/05/20 19:49 D50w (25gm) Syringe IV Q30MIN PRN Hypoglycemia Protocol Enoxaparin Sodium 40 mg 09/06/20 22:00 Enoxaparin SUB-Q QDAY@2200 [facility] Protocol Insulin Human Lispro 0 unit 09/06/20 16:30 09/06/20 18:22 Humalog SUB-Q Not Given ACHS [facility] Protocol Losartan Potassium 100 mg 09/06/20 10:00 09/06/20 12:22 Cozaar PO 100 mg DAILY [facility] Administration Magnesium Hydroxide 30 ml 09/05/20 19:44 Milk Of Magnesia PO Q4H PRN Constipation Metoclopramide HCl 10 mg 09/05/20 19:44 Reglan PO Q6H PRN Nausea And Vomiting Ondansetron HCl 4 mg 09/05/20 19:44 Zofran IV Q8H PRN Nausea And Vomiting Promethazine HCl 25 mg 09/05/20 19:44 Phenergan [place] Q6H PRN Nausea And Vomiting Sodium Chloride 10 ml 09/05/20 19:44 Sodium Chloride Flush Syringe 10 Ml IV PRN PRN LINE FLUSH
--- NOTE | 2020-09-06 15:22 | Consultation ---
History of Present Illness Consult date: 09/06/20 Reason for Consult: R/O CVA Chief complaint: Slurred speech and facial numbness and tingling. History of present illness: 45 yo female with htn, dm, hld, stroke (in 2018) w/ residual left-sided weakness/numbness who presents with an episode of slurred speech (this is a second episode). She notes she has off/on left facial tingling and numbness. Notes one difference this time is that she had right neck pain the day before and, on the day, she had a bad headache (top of head; non-positional; no photo/phonosensitivity; no aura). She notes that this time, the facial numbness/tingling lasted for 1 to 2 hours and the slurred speech lasted for less than 30 minutes. She notes a hx of fracturing her left ankle secondary to a GLF in the snow and so does have added difficulty with walking on that leg. Past History Past Medical History: diabetes, hypertension, hyperlipidemia Past Surgical History: Other (D&C) Social history: . denies: smoking, alcohol abuse, prescription drug abuse Family history: diabetes, hypertension Medications and Allergies Allergies Allergy/AdvReac Type Severity Reaction Status Date / Time Penicillins AdvReac Intermediate Hives Verified 02/17/18 15:16 Home Medications Medication Instructions Recorded Confirmed Last Taken Type HumuLIN 70-30 Vial 27 units SUB-Q QHS 02/14/18 09/06/20 02/20/18 23:00 History 27 UNITS HumuLIN 70-30 Vial 45 units SUB-Q QAM 02/14/18 09/06/20 02/20/18 09:00 History 45 UNITS Losartan 100 mg PO DAILY 02/14/18 09/06/20 02/20/18 History Albuterol Mdi (or & Nicu Only) 2 puff IH QID PRN 02/21/18 09/06/20 01/17/18 History [Proair] Simvastatin 40 mg PO QHS #30 tablet 09/05/20 Unknown Rx Active Meds: Active Medications Acetaminophen (Tylenol) 650 mg PO Q4H PRN PRN Reason: Pain, Mild (1-3) Last Admin: 09/06/20 01:47 Dose: 650 mg Documented by: Amlodipine Besylate (Amlodipine) 5 mg PO QDAY [facility] Aspirin (Aspirin) 325 mg PO QDAY [facility] Last Admin: 09/06/20 12:21 Dose: 325 mg Documented by: Atorvastatin Calcium (Lipitor) 40 mg PO QHS [facility] Last Admin: 09/05/20 23:50 Dose: 40 mg Documented by: Bisacodyl (Dulcolax) 10 mg CO QDAY PRN PRN Reason: Constipation Dextrose (D50w (25gm) Syringe) 0 ml IV Q30MIN PRN; Protocol PRN Reason: Hypoglycemia Enoxaparin Sodium (Enoxaparin) 40 mg SUB-Q QDAY@2200 TJ; Protocol Insulin Human Lispro (Humalog) 0 unit SUB-Q ACHS [facility]; Protocol Losartan Potassium (Cozaar) 100 mg PO DAILY [facility] Last Admin: 09/06/20 12:22 Dose: 100 mg Documented by: Magnesium Hydroxide (Milk Of Magnesia) 30 ml PO Q4H PRN PRN Reason: Constipation Metoclopramide HCl (Reglan) 10 mg PO Q6H PRN PRN Reason: Nausea And Vomiting Ondansetron HCl (Zofran) 4 mg IV Q8H PRN PRN Reason: Nausea And Vomiting Promethazine HCl (Phenergan) 25 mg CO Q6H PRN PRN Reason: Nausea And Vomiting Sodium Chloride (Sodium Chloride Flush Syringe 10 Ml) 10 ml IV PRN PRN PRN Reason: LINE FLUSH Review of Systems All systems: negative (except as per HPI;) Physical Examination - Vital Signs Vital Signs: Vital Signs Temp Pulse Resp BP Pulse Ox 98.9 F 70 15 134/70 99 09/05/20 15:36 09/05/20 15:36 09/05/20 15:36 09/05/20 15:36 09/05/20 15:36 - Additional Exam Additional Exam: Gen: nad, well-nourished; Head: normocephalic; Eyes: no gaze deviation; no ptosis; ENT: normal vocalization; CVS: warm and well-perfused; Pulm: no respiratory distress; GI: non-distended, protuberant; Ext: no cyanosis or edema at distal extremities; Skin: no acute rash or hives at distal extremities; Heme: no pathologic bruising or ecchymosis at distal extremities; Neuro: alert, oriented to name, age, month, year, surroundings, no dysarthria, no aphasia, CN 2 - PERRL, visual leroy intact, CN 3, 4, 6 - EOMI, CN 5 - facial sensation decreased at V2/V3 distribution to light touch, CN 7 - facial movement symmetric, CN 8 - hearing grossly intact, CN 9, 10 - uvula midline, CN 11 - shrug symmetric, CN 12 - tongue midline; Motor - at least 4+/5 at right extremities and at least 3/5 at distal LUE and at least 3+/5 at distal LLE with mild straight drift; Sensory - light touch decreased at left arm/leg; Cerebellar - fnf /hts intact, Gait - deferred secondary to fall risk; NIHSS (1a.) Level of Consciousness:0 (1b.) LOC Questions:0 (1c.) LOC Commands:0 (2.) Best Gaze:0 (3.) Visual:0 (4.) Facial Palsy:0 (5a.) Motor Arm, Left:1 (5b.) Motor Arm, Right:0 (6a.) Motor Leg, Left:1 (6b.) Motor Leg, Right:0 (7.) Limb Ataxia:0 (8.) Sensory:0 (9.) Best Language:0 (10.) Dysarthria:0 (11.) Extinction and Inattention:0 NIHSS Total Score: 2 Results - Laboratory Findings CBC and BMP: 09/05/20 17:01 09/05/20 17:01 Abnormal Lab Findings: Abnormal Labs 09/05/20 09/05/20 17:01 17:01 Hgb 9.5 L Hct 30.1 L MCH 26 L RDW 15.5 H Lymph % (Auto) 43.4 H Eos % (Auto) 5.2 H Baso % (Auto) 1.9 H Chloride 111.1 H Carbon Dioxide 21 L Albumin 3.5 L Assessment and Plan 45 yo female with htn, dm, hld, stroke (in 2018) w/ residual left-sided weakness/numbness who presents with an episode of slurred speech (this is a second episode). She notes she has off/on left facial tingling and numbness. Notes one difference this time is that she had right neck pain the day before and, on the day, she had a bad headache (top of head; non-positional; no photo/phonosensitivity; no aura). She notes that this time, the facial numbness/tingling lasted for 1 to 2 hours and the slurred speech lasted for less than 30 minutes. She notes a hx of fracturing her left ankle secondary to a GLF in the snow and so does have added difficulty with walking on that leg. 1. TIA - continue aspirin 81 mg and plavix 75 mg po qday; ?recrudescence of previous stroke symptoms - confirm no underlying metabolic/infectious trigger; mri brain / echo / tsh/ldl/a1c, baseline ekg/cxr. 2. MS - ? in time/space; add mri c-spine w/ wo contrast. 3. Neck pain - r/o cerebrovascular dissection, cta head/neck w/ wo contrast. 3. Hx of Stroke - continue Aspirin 81 mg and Plavix 75 mg PO qday (home regimen) and statin thearpy for a goal LDL of 70; long-term risk factor m odification of htn, dm, hld w/ medications, diet, and exercise. 4. HTN - normotension for now. 5. DM - maintain euglycemia. 6. HLD - goal LDL of 70 w/ statin therapy. 7. Followup with stroke neuorlogy in 6 weeks.
[2020-09-06] MEDS: amLODIPine 5 MG TAB PO SCH (19:07)
[2020-09-06] MEDS ORDERED: ENOXAPARIN 40 MG/0.4 ML INJ SUB-Q SCH (22:00)
[2020-09-07] MEDS: INSULIN LISPRO 100 UNIT/ML VIAL 3 mL SUB-Q SCH ×3 (08:36→13:27)
--- NOTE | 2020-09-07 09:08 | Progress Note ---
<JAMES ANDREA - Last Filed: 09/07/20 14:09> Assessment and Plan Assessment and Plan - Patient Problems (1) CVA (cerebral vascular accident) Current Visit: Yes Status: Acute Qualifiers: Laterality of affected vessel: unspecified Plan to address problem: Continue CVA Protocol: 09/05/20-CT head-no acute finding Carotid US-negative Reviewed Neurologist note and rece-continue ASA and plavix Neuro check, PT consulted, OT consulted, Speech consulted, ECHO-f/u with result (2) HTN (hypertension)-stable Current Visit: Yes Status: Acute Qualifiers: Hypertension type: essential hypertension Qualified Code(s): I10 - Essential (primary) hypertension Plan to address problem: Monitor blood pressure Continue antihypertensive Adjust BP med if needed (3) HLD (hyperlipidemia) Current Visit: Yes Status: Acute Qualifiers: Hyperlipidemia type: mixed hyperlipidemia Qualified Code(s): E78.2 - Mixed hyperlipidemia Plan to address problem: Continue statin therapy Discussed Lifestyle modification Advised to avoid fried foods, animal fat Eat more fruits and vegetable and avoid foods high cholesterol diet. (4) Diabetes Current Visit: Yes Status: Acute Plan to address problem: Monitor blood sugar with SSI Avoid foods rich in concentrated sweeteners (5) DVT prophylaxis Current Visit: Yes Status: Acute Plan to address problem: SCD to BLE while in bed. Subjective Date of service: 09/07/20 Principal diagnosis: CVA Interval history: Patient seen at bedside Reviewed lab, mar, and v/s Reviewed Speech note Swallowing evaluation has been conducted. Patient is safe for a regular diet. Speech has resolved with no dysarthria noted. Reviewed PT note-Pt demonstrates I with all functional mobilities. No strength or balance deficits noted. No skilled PT needs at this time Objective - Constitutional Vitals: Vital Signs - 12hr 09/06/20 09/06/20 09/07/20 22:10 22:27 04:41 Temperature 98.8 F 98.8 F Pulse Rate 77 82 Respiratory 18 18 20 Rate Blood Pressure 127/61 109/70 O2 Sat by Pulse 99 99 Oximetry General appearance: Present: no acute distress, well-nourished, obese - EENT Eyes: PERRL, EOM intact ENT: hearing intact, clear oral mucosa Ears: bilateral: normal - Neck Neck: supple, normal ROM - Respiratory Respiratory effort: normal Respiratory: bilateral: CTA - Breasts Breasts: normal - Cardiovascular Heart rate: 82 Rhythm: regular Heart Sounds: Present: S1 & S2. Absent: gallop, rub Extremities: pulses intact, No edema, normal color, Full ROM - Gastrointestinal General gastrointestinal: Present: soft, non-tender, non-distended, normal bowel sounds - Genitourinary Female genitourinary: normal - Integumentary Integumentary: clear, warm, dry - Neurologic Neurologic: moves all extremities - Psychiatric Psychiatric: memory intact, appropriate mood/affect, intact judgment & insight - Allied health notes Allied health notes reviewed: nursing - Labs CBC & Chem 7: 09/05/20 17:01 09/07/20 10:42 HEART Score - HEART Score Troponin: Troponin T < 0.010 ng/mL (0.00-0.029) 09/05/20 17:01 <JORGE PALACIO - Last Filed: 09/07/20 14:55> Assessment and Plan I saw and evaluated the patient. I agree with the findings and the plan of care as documented in the Nurse Practitioner's~note, with the following corrections and additions. Objective - Constitutional Vitals: Vital Signs - 12hr 09/07/20 09/07/20 09/07/20 04:41 09:36 09:37 Temperature 98.8 F Pulse Rate 82 94 H Respiratory 20 Rate Blood Pressure 109/70 105/66 105/66 O2 Sat by Pulse 99 100 Oximetry 09/07/20 11:52 Temperature 98.7 F Pulse Rate 70 Respiratory 18 Rate Blood Pressure 119/84 O2 Sat by Pulse 99 Oximetry - Labs CBC & Chem 7: 09/05/20 17:01 09/07/20 10:42 Labs: Abnormal lab results 09/07/20 Range/Units 10:42 Chloride 112.0 H (98-107) mmol/L Carbon Dioxide 21 L (22-30) mmol/L Creatinine 0.5 L (0.6-1.2) mg/dL Glucose 161 H (65-100) mg/dL Calcium 8.2 L (8.4-10.2) mg/dL HEART Score - HEART Score Troponin: Troponin T < 0.010 ng/mL (0.00-0.029) 09/05/20 17:01
[2020-09-07] MEDS: ASPIRIN 325 MG TAB PO SCH (09:33)
[2020-09-07] MEDS: amLODIPine 5 MG TAB PO SCH (09:37)
[2020-09-07] MEDS: LOSARTAN 50 MG TAB PO SCH (09:38)
[2020-09-07 11:29] LABS: Blood Urea Nitrogen 11 mg/dL (7-17); Calcium 8.2 mg/dL (8.4-10.2); Hemolysis Index 1
[2020-09-07 11:31] LABS: BUN/Creatinine Ratio 22
[2020-09-07] MEDS ORDERED: FLU VACC QUAD 2020-2021 (6 months +)/PF 60 0.5 ML SYRINGE IM ONE (12:00)
[2020-09-07 13:57] VITALS: BP 119/84
--- NOTE | 2020-09-07 14:02 | Discharge Summary ---
<LYNDONWOJCIECHJERRODARJUNDEYAJAMES - Last Filed: 09/07/20 14:08> Providers - Providers Date of Admission: 09/06/20 14:56 Attending physician: JORGE PALACIO MD 09/05/20 19:45 Occupational Therapy Evaluate and Treat [CONS] Routine Comment: Reason For Exam: Neuro deficits Physical Therapy Evaluation and Treat [CONS] Routine Comment: Reason For Exam: Neuro deficits Speech Therapy Evaluation and Treat [CONS] Routine Reason For Exam: swallow eval 09/06/20 11:39 Consult to Physician [CONS] Routine Comment: Consulting Provider: TR JAMES Physician Instructions: Reason For Exam: r/o cva Primary care physician: CAR SCRUBBER Hospitalization Condition: Stable Hospital course: - Patient Problems (1) CVA (cerebral vascular accident) Continue CVA Protocol: 09/05/20-CT head-no acute finding Carotid US-negative Reviewed Neurologist note and rece-continue ASA and plavix PT consulted, OT consulted, Speech consulted, (2) HTN (hypertension)-stable Advised to be compliance with treatment at home and follow up with PCP (3) HLD (hyperlipidemia): Continue home statin therapy Discussed Lifestyle modification Advised to avoid fried foods, animal fat Eat more fruits and vegetable and avoid foods high cholesterol diet. (4) Diabetes: Monitor blood sugar at home with SSI Avoid foods rich in concentrated sweeteners Patient seen at bedside Reviewed lab, mar, and v/s Reviewed Speech note Swallowing evaluation has been conducted. Patient is safe for a regular diet. Speech has resolved with no dysarthria noted. Reviewed PT note-Pt demonstrates I with all functional mobilities. No strength or balance deficits noted. No skilled PT needs at this time patient is discharge today patient advised to follow up with her PCP and neurologist and do MRI of the head/brain out patient-patient voiced Understanding Disposition: DC-01 TO HOME OR SELFCARE Core Measure Documentation - Palliative Care Palliative Care/ Comfort Measures: Not Applicable - Core Measures Any of the following diagnoses?: none Exam - Constitutional Vitals: Temp Pulse Resp BP Pulse Ox 98.7 F 70 18 119/84 99 09/07/20 11:52 09/07/20 11:52 09/07/20 11:52 09/07/20 11:52 09/07/20 11:52 General appearance: Present: no acute distress, well-nourished - EENT Eyes: Present: PERRL ENT: hearing intact, clear oral mucosa - Neck Neck: Present: supple, normal ROM - Respiratory Respiratory effort: normal Respiratory: bilateral: CTA - Cardiovascular Heart rate: 80 Heart Sounds: Present: S1 & S2. Absent: rub, click - Extremities Extremities: pulses symmetrical, No edema Peripheral Pulses: within normal limits - Abdominal General gastrointestinal: Present: soft, non-tender, non-distended, normal bowel sounds Female genitourinary: Present: normal - Integumentary Integumentary: Present: clear, warm, dry - Musculoskeletal Musculoskeletal: gait normal, strength equal bilaterally - Psychiatric Psychiatric: appropriate mood/affect, intact judgment & insight - Neurologic Neurologic: CNII-XII intact, moves all extremities - Allied Health Allied health notes reviewed: nursing, case management Plan Activity: fall precautions Weight Bearing Status: Weight Bear as Tolerated Diet: low fat, low cholesterol, low salt, diabetic, low carbohydrate Follow up with: PRIMARY CARE, [Primary Care Provider] - 3-5 Days Prescriptions: AtorvaSTATin [Lipitor] 40 mg PO QHS 30 Days #30 tablet Simvastatin 40 mg PO QHS #30 tablet amLODIPine 5 mg PO QDAY 30 Days #30 tablet Aspirin EC [Halfprin EC] 81 mg PO QDAY 30 Days #30 tablet Losartan 100 mg PO DAILY 30 Days #30 <JORGE PALACIO - Last Filed: 09/07/20 14:56> Providers - Providers Date of Admission: 09/06/20 14:56 Attending physician: JORGE PALACIO MD 09/05/20 19:45 Occupational Therapy Evaluate and Treat [CONS] Routine Comment: Reason For Exam: Neuro deficits Physical Therapy Evaluation and Treat [CONS] Routine Comment: Reason For Exam: Neuro deficits Speech Therapy Evaluation and Treat [CONS] Routine Reason For Exam: swallow eval 09/06/20 11:39 Consult to Physician [CONS] Routine Comment: Consulting Provider: TR JAMES Physician Instructions: Reason For Exam: r/o cva Primary care physician: CAR SCRUBBER Exam - Constitutional Vitals: Temp Pulse Resp BP Pulse Ox 98.7 F 70 18 119/84 99 09/07/20 11:52 09/07/20 11:52 09/07/20 11:52 09/07/20 11:52 09/07/20 11:52 Plan Additional Instructions: follow with her primary neurology
--- NOTE | 2020-09-07 17:15 | Magnetic Resonance Report ---
MRI BRAIN WITHOUT CONTRAST INDICATION / CLINICAL INFORMATION: Cerebrovascular accident. Patient presented with facial weakness and aphasia. TECHNIQUE: Multiplanar, multisequence MR images of the brain were obtained. 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 Ventricles and cortical sulci are otherwise normal in size and conf iguration. There is no mass effect. No evidence of intracranial hemorrhage or extra-axial fluid colle ction is seen. A linear area of CSF signal intensity is seen traversing the right frontal lobe (MRI s eries 7 image 21). 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 Several nonspecific foci of white matter) hyperintensity are noted. Area of encephalomalacia seen in the right occipital lobe . This Percent a remote right occipital lobe infarction or other old brain injury. There is suggestion of a remote small deep infarction in the left gangliocapsular region. Diffusion weighted scans are negativ e. There is no indication of acute ischemic injury. The brainstem and cerebellum have an unremarkable appearance. MIDLINE STRUCTURES:No abnormalities are seen to involve the pituitary gland. Pineal region has an unr emarkable appearance. CRANIOCERVICAL JUNCTION: No abnormalities are identified at the craniocervical junction. VASCULAR FLOW-VOIDS: Normal flow-voids are present within the major intracranial vessels. ORBITS: Patient appears to be status post bilateral cataract surgery. The orbits have an otherwise un remarkable appearance. SINUSES / MASTOIDS: Inflammatory mucosal disease is present within multiple ethmoid air cells and at the base of both maxillary sinuses. Mild mucosal thickening is also observed in the sphenoid sinuses bilaterally. Not develop in this individual. The ethmoid air cells appear clear on recent head CT 09/2020. IMPRESSION: 1. 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 2. Linear area of CSF signal intensity traversing the right frontal lobe. 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 3. 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 4. No acute intracranial abnormality. Signer Name: Jimbo Becerra MD Signed: 09/07/2020 5:11 PM Workstation Name: [id number]
[2020-09-08] MEDS ORDERED: ASPIRIN EC 81 MG TAB PO SCH (10:00)
== END 2020-09-07 14:35 | disposition home or self-care (01) | DRG 69 ==
LOC: ED 14:56 → 3A 19:45 → OBSVTOIN 09-06 14:56
PROVIDERS: ADMIT Internal Medicine; ATTEND Internal Medicine
DX: G45.9 Transient cerebral ischemic attack, unspecified (principal); G81.94 Hemiplegia, unspecified affecting left nondominant side; K21.9 Gastro-esophageal reflux disease without esophagitis; J45.909 Unspecified asthma, uncomplicated; E78.5 Hyperlipidemia, unspecified; E11.9 Type 2 diabetes mellitus without complications; G47.33 Obstructive sleep apnea (adult) (pediatric); Z79.4 Long term (current) use of insulin; Z79.899 Other long term (current) drug therapy; Z88.0 Allergy status to penicillin; Z82.49 Family history of ischemic heart disease and other diseases of the circulatory system; Z83.3 Family history of diabetes mellitus; Z87.891 Personal history of nicotine dependence
CPT/HCPCS: 36415; 70450; 70551; 71045; 80048; 80053; 80061; 80320; 82550; 82553; 82962; 83036; 84484; 85025; 85610; 85670; 85730; 90471; 90686; 93005; 93306; 93880; 96365; 96375; 96376; G0378; A9270-GY; G0480; J1650